=== PATIENT | male | born 1985 | race Caucasian/White ===

== ENCOUNTER 2025-07-03 08:56 | Day surgery (SDC) | payer BC, OTHER ==
[2025-07-03] VITALS (7 sets, daily range): BP systolic 103–141; BP diastolic 67–99; PULSE 79–102; RESP 12–17; TEMP 98.4; O2SAT 96–100
[~2025-07-03] VITALS: Ht 175.3 cm; Wt 90.0 kg
[~2025-07-03 08:56] MED LIST: DOCUMENT DATE & TIME OF BETA-BLOCKER PO ONE; LIDOcaine 2% Viscous 15ml cup MM ONE; ringers solution, lacted 1,000 ML IV SCH
--- NOTE | 2025-07-03 09:31 | ELECTROCARDIOGRAPH REPORT ---
[facility] Test Date: 2025-07-03 Test Time: 09:28:32 Pat Name: JAZZMINE CARRANZA Department: [facility]-GI LAB Patient ID: [id number] Room: Gender: M Digester Cook: NEIL : 1985 Requested By: LUIS MIGUEL CHUN Order Number: [id number] Reading MD: Dr. YULIET Hugo Measurements Intervals [place] Rate: 76 P: 50 W[place]: 165 QRS: 52 QRSD: 96 T: 57 QT: 373 QTc: 420 Interpretive Statements Sinus rhythm Electronically Signed On 07-03-2025 16:02:[address] YULIET Hugo Please click the below link to view image of tracing.
[2025-07-03] MEDS ORDERED: midazolam 1 mg/ML 2ml injection ONE (11:10)
[2025-07-03] MEDS ORDERED: propofol inj 20 ML IV ONE ×2 (11:23)
== END 2025-07-03 11:54 | disposition home or self-care (01) ==
LOC: GI LAB 08:56
PROVIDERS: ATTEND Internal Medicine Gastroenterology
DX: R10.33 Periumbilical pain (principal); K30 Functional dyspepsia; D13.1 Benign neoplasm of stomach; K25.9 Gastric ulcer, unspecified as acute or chronic, without hemorrhage or perforation; K31.89 Other diseases of stomach and duodenum; K22.89 Other specified disease of esophagus; Z88.8 Allergy status to other drugs, medicaments and biological substances; Z88.5 Allergy status to narcotic agent; Z79.899 Other long term (current) drug therapy
CPT/HCPCS: 43239; 93005; J2250; J2704; J7030; J7120; Z7512; A4618; A4620; A6449; A7000

== ENCOUNTER 2025-08-03 09:16 | Day surgery (SDC) | payer OTHER ==
[~2025-08-03] VITALS: Ht 172.7 cm; Wt 85.7 kg
[~2025-08-03 09:16] MED LIST changes: -DOCUMENT DATE & TIME OF BETA-BLOCKER PO ONE; +HYDR-3972 PO; -LIDOcaine 2% Viscous 15ml cup MM ONE; -ringers solution, lacted 1,000 ML IV SCH; +simethicone 40mg/0.6ml oral drops 15ml PO ONE
[2025-08-03 09:40] VITALS: BP 143/98; PULSE 81; RESP 16; TEMP 98.3; O2SAT 98
[2025-08-03] MEDS: ringers solution, lacted 1,000 ML IV SCH (10:03)
[2025-08-03] MEDS ORDERED: fentaNYL/PF 50MCG/1 ML 2ML syringe ONE (12:25)
[2025-08-03] MEDS ORDERED: midazolam 1 mg/ML 2ml injection ONE (12:25)
[2025-08-03] MEDS ORDERED: propofol inj 20 ML IV ONE ×2 (12:38)
[2025-08-03 12:54] VITALS: BP 110/58; PULSE 94; RESP 14; O2SAT 94
[2025-08-03 13:10] VITALS: BP 117/75; PULSE 75; RESP 14; O2SAT 96
[2025-08-03 13:20] VITALS: BP 143/82; PULSE 77; RESP 14; O2SAT 95
[2025-08-03 13:30] VITALS: BP 132/80; PULSE 72; RESP 14; O2SAT 97
--- NOTE | 2025-08-05 11:49 | PATHOLOGY REPORT ---
[facility] [address] [place] [address] SURGICAL PATHOLOGY REPORT CaseNumber: [id number] Surgeon:Jeremi Goyal M.D. CLINICAL INFORMATION CLINICAL INFORMATION: Submucosal lesion in cecum. DIAGNOSIS DIAGNOSIS: A.COLON, CECUM; BIOPSY - BENIGN COLONIC MUCOSA. - SUBMUCOSAL TISSUE IS NOT SAMPLED. DIAGNOSIS: B.COLON, RECTUM; BIOPSY - HYPERPLASTIC POLYP. MICROSCOPIC DESCRIPTION A. COLON, CECUM MICROSCOPIC DESCRIPTION: Three slides representing multiple levels from part A are examined. Present is normal-appearing colonic mucosa containing a benign lymphoid aggregate. Submucosal tissue is not sampled and therefore a submucosal lesion cannot be assessed. Colonic mucosa has normal architecture with straight parallel crypts which extend to the level of muscularis mucosa. There is no significant inflammatory component and no hyperplastic or adenomatous change. (bb) B. COLON, RECTUM MICROSCOPIC DESCRIPTION: One slide from part B is examined. Performed. (bb) GROSS DESCRIPTION A. COLON, CECUM GROSS DESCRIPTION: Received in a container of formalin labeled with the patient's name, number, and "submucosal lesion of cecum BX" are 2 pieces of alejandre tissue 0.2 and 0.4 x 0.2 x 0.1 cm. The specimen is entirely submitted as A1. The time at which the specimen was removed was 1243. The time at which the specimen was placed in formalin was 1244. B. COLON, RECTUM GROSS DESCRIPTION: Received in a container of formalin labeled with the patient's name, number, and "rectal polyp" is a 0.3 cm polypoid piece of alejandre tissue. The specimen is entirely submitted as B1. The time at which the specimen was removed was 1243. The time at which the specimen was placed in formalin was 1244. Electronically signed by: Freddy Cornejo M.D. 08/05/2025 11:17:00 AM
== END 2025-08-03 13:34 | disposition home or self-care (01) ==
LOC: PAS 09:16
PROVIDERS: ATTEND Internal Medicine Gastroenterology
DX: R19.4 Change in bowel habit (principal); K62.1 Rectal polyp; K63.89 Other specified diseases of intestine; Z98.52 Vasectomy status; Z88.5 Allergy status to narcotic agent; Z88.0 Allergy status to penicillin; Z79.899 Other long term (current) drug therapy; Z98.890 Other specified postprocedural states
CPT/HCPCS: 45380; 45385; J2250; J2704; J3010; J7120; Z7512; A4615; A4620